=== PATIENT | male | born 1960 | race Caucasian/White ===

== ENCOUNTER 2021-05-01 02:15 | Inpatient (IN) | payer SELFPAY ==
[2021-05-01 02:49] LABS: Absolute Lymphocytes (CBC) 1.9 K/uL (0.7-4.9); Hematocrit 47.5 % (39.6-49.0); Lymphocytes % 21.1 % (15.3-44.8); MPV 8.4 fL (7.6-11.3); Protime INR 0.95; RBC Red Blood Cell Count 5.39 M/uL (4.33-5.43)
[2021-05-01 03:29] LABS: ALT/SGPT 26 U/L (12-78); AST/SGOT 15 U/L (15-37); Albumin 3.6 g/dL (3.4-5.0); Alkaline Phosphatase 88 U/L (45-117); BUN Blood Urea Nitrogen 15 mg/dL (7-18); Bicarbonate 27 mmol/L (21-32); Bilirubin Direct < 0.1 mg/dL (0-0.2); Bilirubin Total 0.2 mg/dL (0.2-1.0); Glucose Level 137 mg/dL (74-106); NT PRO-BNP 123 pg/mL (<125); Potassium 3.9 mmol/L (3.5-5.1); Protein, Total 7.2 g/dL (6.4-8.2); Sodium Level 139 mmol/L (136-145)
--- NOTE | 2021-05-01 04:04 | EDPHYS ---
Physician Documentation [facility] Name: Miah Feliciano Age: 60 yrs Sex: Male : 1960 Arrival Date: 05/01/2021 Time: 02:20 Bed 6 Private MD: ED Physician Virginia Shaw HPI: 05/01 02:40 This 60 yrs old Male presents to ER via Ambulatory with complaints of Chest Pain. sp3 02:40 60-year-old male with history of hypertension on enalapril with no regular medical care sp3 except refills at a "local clinic" presents with a 1 hour history of substernal chest pain radiating to the left arm and is self subsided with time. Patient had 2 adult full strength aspirin by his son prior to arrival. Patient also complains of mild shortness of breath and pain on his left upper extremity with mild numbness of his distal extremity. Patient denies back pain, abdominal pain, nausea, vomiting, diarrhea, syncope, rash, long travel, prolonged immobility, family history of pulmonary embolism or hypercoagulability, or any other review of systems at this time. Patient's pain was described as dull and radiating as described above. Patient has not had a COVID-19 vaccination.. Historical: - Allergies: 02:27 No Known Allergies; tw5 - Home Meds: 02:27 enalapril maleate 20 mg Oral tab 1 tab once daily [Active]; tw5 - PMHx: 02:27 Hypertensive disorder; tw5 - PSHx: 02:27 None; tw5 - Immunization history:: Flu vaccine is not up to date. - Social history:: Smoking status: Patient denies any tobacco usage or history of. ROS: 02:42 Constitutional: Negative for fever, chills, and weight loss, Eyes: Negative for injury, sp3 pain, redness, and discharge, ENT: Negative for injury, pain, and discharge, Neck: Negative for injury, pain, and swelling, Abdomen/GI: Negative for abdominal pain, nausea, vomiting, diarrhea, and constipation, Back: Negative for injury and pain, : Negative for injury, bleeding, discharge, and swelling, MS/Extremity: Negative for injury and deformity, Skin: Negative for injury, rash, and discoloration, Neuro: Negative for headache, weakness, numbness, tingling, and seizure, Psych: Negative for depression, anxiety, suicide ideation, homicidal ideation, and hallucinations, Allergy/Immunology: Negative for hives, rash, and allergies. 02:42 All other systems are negative. Exam: 02:42 Constitutional: This is a well developed, well nourished patient who is awake, alert, sp3 and in no acute distress. Head/Face: Normocephalic, atraumatic. Eyes: Pupils equal round and reactive to light, extra-ocular motions intact. Lids and lashes normal. Conjunctiva and sclera are non-icteric and not injected. Cornea within normal limits. Periorbital areas with no swelling, redness, or edema. ENT: Nares patent. No nasal discharge, no septal abnormalities noted. External auditory canals are clear. Oropharynx with no redness, swelling, or masses, exudates, or evidence of obstruction, uvula midline. Mucous membranes moist. Neck: Trachea midline, no thyromegaly or masses palpated, and no cervical lymphadenopathy. Supple, full range of motion without nuchal rigidity, or vertebral point tenderness. No Meningismus. Chest/axilla: Normal chest wall appearance and motion. Nontender with no deformity. No lesions are appreciated. Cardiovascular: Regular rate and rhythm with a normal S1 and S2. No gallops, murmurs, or rubs. Normal PMI, no JVD. No pulse deficits. Respiratory: Lungs have equal breath sounds bilaterally, clear to auscultation and percussion. No rales, rhonchi or wheezes noted. No increased work of breathing, no retractions or nasal flaring. Abdomen/GI: Soft, non-tender, with normal bowel sounds. No distension or tympany. No guarding or rebound. No evidence of tenderness throughout. Back: No spinal tenderness. No costovertebral tenderness. Full range of motion. Skin: Warm, dry with normal turgor. Normal color with no rashes, no lesions, and no evidence of cellulitis. MS/ Extremity: Pulses equal, no cyanosis. Neurovascular intact. Full, normal range of motion. Neuro: Awake and alert, GCS 15, oriented to person, place, time, and situation. Cranial nerves II-XII grossly intact. Motor strength 5/5 in all extremities. Sensory grossly intact. Cerebellar exam normal. Normal gait. Psych: Awake, alert, with orientation to person, place and time. Behavior, mood, and affect are within normal limits. Vital Signs: 02:23 BP 174 / 102; Pulse 84; Resp 18; Temp 97.7; Pulse Ox 100% on R/A; Weight 90.72 kg; tw5 Height 5 ft. 10 in. (177.80 cm); Pain 5/10; 03:11 BP 156 / 88; Pulse 86; Resp 18; Pulse Ox 98% on R/A; vc1 02:23 Body Mass Index 28.70 (90.72 kg, 177.80 cm) tw5 MDM: 02:28 Patient medically screened. sp3 02:43 Data reviewed: vital signs, nurses notes. ED course: 60-year-old male with hypertension sp3 and chest pain. Will obtain laboratory values, chest x-ray, CT PE protocol, and EKG. EKG demonstrates normal sinus rhythm at 83 bpm with normal intervals, normal QRS, normal axis, normal ST/T-segment's without any evidence of ischemia.. 05/01 02:30 Order name: Basic Metabolic Panel 05/01 02:30 Order name: CBC with Diff; Complete Time: 03:43 05/01 02:30 Order name: LFT's 05/01 02:30 Order name: Magnesium 05/01 02:30 Order name: NT PRO-BNP 05/01 02:30 Order name: PT-INR; Complete Time: 03:43 05/01 02:30 Order name: Troponin HS 05/01 02:30 Order name: XRAY Chest (1 view) 05/01 02:30 Order name: EKG; Complete Time: 02:31 05/01 02:30 Order name: Cardiac monitoring; Complete Time: 02:30 05/01 02:30 Order name: EKG - Nurse/Tech; Complete Time: 02:30 05/01 02:30 Order name: IV Saline Lock; Complete Time: 02:38 tw05/01 02:43 Order name: COVID-19 SARS RT PCR (Document "Date of Onset" if Symptomatic) cs9 05/01 03:46 Order name: CT Chest For PE Angio sp3 05/01 02:30 Order name: Labs collected and sent; Complete Time: 02:38 tw05/01 02:30 Order name: O2 Per Protocol; Complete Time: 02:30 tw5 05/01 02:30 Order name: O2 Sat Monitoring; Complete Time: 02:30 tw5 Administered Medications: No medications were administered Disposition Summary: 05/01/21 04:03 Hospitalization Ordered Hospitalization Status: Observation sp3 Provider: Ervin Wei sp3 Location: Telemetry/MedSurg (observation) sp3 Condition: Stable sp3 Problem: new sp3 Symptoms: are unchanged sp3 Bed/Room Type: Standard sp3 Room Assignment: 207(05/01/21 04:44) cg Diagnosis - Chest pain sp3 Forms: - Medication Reconciliation Form sp3 - SBAR form sp3 Signatures: Dispatcher [employer] Brooke Abrams RN RN cg Virginia Shwa MD MD sp3 Carol Ann Coleman tw5 Corrections: (The following items were deleted from the chart) 04:44 04:03 sp3 cg
--- NOTE | 2021-05-01 04:04 | ER ---
Nurse's Notes [facility] Name: Miah Feliciano Age: 60 yrs Sex: Male : 1960 Arrival Date: 05/01/2021 Time: 02:20 Bed 6 Private MD: Diagnosis: Chest pain Presentation: 05/01 02:23 Chief complaint: Patient states: "I started hurting out of the blue, I was sitting at tw5 the computer. I am not sure how to describe it. It was started as a pain in my shoulder and radiated all the way down to knuckles on my left side. It was also near the center of my chest.". Coronavirus screen: Vaccine status: Patient reports being unvaccinated. Ebola Screen: Patient negative for fever greater than or equal to 101.5 degrees Fahrenheit, and additional compatible Ebola Virus Disease symptoms Patient denies exposure to infectious person. Patient denies travel to an Ebola-affected area in the 21 days before illness onset. Initial Sepsis Screen: Does the patient meet any 2 criteria? No. Patient's initial sepsis screen is negative. Does the patient have a suspected source of infection? No. Patient's initial sepsis screen is negative. Risk Assessment: Do you want to hurt yourself or someone else? Patient reports no desire to harm self or others. Onset of symptoms was May 01, 2021 at 01:40. 02:23 Method Of Arrival: Ambulatory tw5 02:23 Acuity: RENNY 2 tw5 Triage Assessment: 02:27 General: Appears uncomfortable, Behavior is calm, cooperative, appropriate for age, tw5 anxious. Pain: Complains of pain in chest Pain radiates to left arm Pain currently is 5 out of 10 on a pain scale. at worst was 8 out of 10 on a pain scale. Cardiovascular: Rhythm is sinus rhythm. Historical: - Allergies: 02: No Known Allergies; tw5 - Home Meds: : enalapril maleate 20 mg Oral tab 1 tab once daily [Active]; tw5 - PMHx: 02:27 Hypertensive disorder; - PSHx: 02: None; tw5 - Immunization history:: Flu vaccine is not up to date. - Social history:: Smoking status: Patient denies any tobacco usage or history of. Screenin:28 Abuse screen: Denies threats or abuse. Denies injuries from another. Nutritional tw5 screening: No deficits noted. Tuberculosis screening: No symptoms or risk factors identified. Fall Risk No fall in past 12 months (0 pts). Assessment: 02:28 Pain: Pain currently is 5 out of 10 on a pain scale. Pain began 1 hour ago. tw5 Cardiovascular: Heart tones S1 S2 present Capillary refill < 3 seconds is brisk in bilateral fingers. Vital Signs: 02:23 BP 174 / 102; Pulse 84; Resp 18; Temp 97.7; Pulse Ox 100% on R/A; Weight 90.72 kg; tw5 Height 5 ft. 10 in. (177.80 cm); Pain 5/10; 03:11 BP 156 / 88; Pulse 86; Resp 18; Pulse Ox 98% on R/A; vc1 02:23 Body Mass Index 28.70 (90.72 kg, 177.80 cm) tw5 ED Course: 02:20 Patient arrived in ED. kc5 02:22 Carol Ann Coleman is Primary Nurse. tw5 02:22 Arm band placed on right wrist. EKG completed in triage. Results shown to MD. tw5 02:22 Patient has correct armband on for positive identification. Placed in gown. Bed in low tw5 position. Call light in reach. Side rails up X 1. panel monitor on. Pulse ox on. NIBP on. Door closed. Noise minimized. Moved to private room. Warm blanket given. Verbal reassurance given. 02:22 EKG done, by ED staff, reviewed by Carol Ann Coleman. tw5 02:27 Triage completed. tw5 02:28 Virginia Shaw MD is Attending Physician. sp3 02:39 Missed attempt(s): 18 gauge in right antecubital area. 20 gauge in right antecubital ds4 area. Bleeding controlled, band aid applied, catheter tip intact. 02:43 XRAY Chest (1 view) In Process Unspecified. EDMS 03:11 COVID-19 SARS RT PCR (Document "Date of Onset" if Symptomatic) Sent. vc1 04:03 Ervin Wei MD is Hospitalizing Provider. sp3 04:24 CT Chest For PE Angio In Process Unspecified. EDMS 05:09 No provider procedures requiring assistance completed. Patient admitted, IV remains in vc1 place. Patient maintains SpO2 saturation greater than 95% on room air. Administered Medications: No medications were administered Outcome: 04:03 Decision to Hospitalize by Provider. spTiara 04:54 Admitted to Med/surg accompanied by nurse, room 207, on monitor, Report called to tw5 Report Called to Pete 04:54 Condition: stable 05:09 Patient left the ED. vc1 Signatures: Dispatcher [employer] EDMS Thuan Pierce ds4 Virginia Shaw MD MD sp3 Carol Ann Coleman tw5 Adele Eagle5 Alyx Barcenas, RN RN vc1
--- NOTE | 2021-05-01 04:40 | P.HP ---
Certification for Inpatient Patient admitted to: Observation With expected LOS: <2 Midnights Patient will require the following post-hospital care: None Practitioner: I am a practitioner with admitting privileges, knowledge of patient current condition, hospital course, and medical plan of care. Services: Services provided to patient in accordance with Admission requirements found in Title 42 Section 412.3 of the Code of Federal Regulations <Cj Mcdaniel Mary Jo Stoner - Last Filed: 05/01/21 04:38> Patient History Date of Service: 05/01/21 Reason for admission: Chest pain History of Present Illness: 60-year-old male with history of hypertension presents to the emergency department for chest pain. Patient reports that for the past 1 month he has been having chest pain and shortness of breath with exertion, can barely walk from his house to his mailbox without taking breaks. Describes this pain is a basketball being blown up in his chest with pain radiating across chest and down left arm. Patient reports he has these episodes pretty predictably at home with any exertion but this evening's was the worst. Pain is resolved at this time work-up in the emergency department unremarkable EKG without acute changes, initial troponin negative. Chest x-ray unremarkable CTA to rule out PE pending. ED prior wishes to admit to observation for chest pain. Patient has never had any kind of formal cardiac evaluation previously. Has not been to the doctor many years. - Past Medical/Surgical History -: Hypertension -: None Psychosocial/ Personal History: Patient lives at home with family - Family History Mother -: Cancer - Social History Smoking Status: Former smoker Alcohol use: Yes CD- Drugs: No Caffeine use: Yes Place of Residence: Home <Cj Mcdaniel - Last Filed: 05/01/21 04:38> Date of Service: 05/01/21 <Ervin Wei - Last Filed: 05/01/21 17:15> Review of Systems 10-point ROS is otherwise unremarkable Respiratory: Shortness of Breath Cardiovascular: Chest Pain <Cj Mcdaniel - Last Filed: 05/01/21 04:38> Physical Examination - Physical Exam General: Alert, In no apparent distress, Oriented x3 HEENT: Atraumatic, PERRLA, Mucous membr. moist/pink, EOMI, Sclerae nonicteric Neck: Supple, 2+ carotid pulse no bruit, No LAD, Without JVD or thyroid abnormality Respiratory: Clear to auscultation bilaterally, Normal air movement Cardiovascular: Regular rate/rhythm, Normal S1 S2 Gastrointestinal: Normal bowel sounds, No tenderness Musculoskeletal: No tenderness Integumentary: No rashes Neurological: Normal gait, Normal speech, Normal strength at 5/5 x4 extr, Normal tone, Normal affect Lymphatics: No axilla or inguinal lymphadenopathy - Studies Laboratory Data (last 24 hrs) 05/01/21 02:36: PT 10.9, INR 0.95 05/01/21 02:36: WBC 9.10, Hgb 15.8, Hct 47.5, Plt Count 334 05/01/21 02:36: Sodium 139, Potassium 3.9, BUN 15, Creatinine 1.10, Glucose 137 H, Total Bilirubin 0.2, AST 15, ALT 26, Alkaline Phosphatase 88 <Cj Mcdaniel - Last Filed: 05/01/21 04:38> - Studies Laboratory Data (last 24 hrs) 05/01/21 15:11: APTT 31.9 05/01/21 02:36: PT 10.9, INR 0.95 05/01/21 02:36: WBC 9.10, Hgb 15.8, Hct 47.5, Plt Count 334 05/01/21 02:36: Sodium 139, Potassium 3.9, BUN 15, Creatinine 1.10, Glucose 137 H, Magnesium 2.1, Total Bilirubin 0.2, AST 15, ALT 26, Alkaline Phosphatase 88 <Ervin Wei - Last Filed: 05/01/21 17:15> Assessment and Plan - Plan Assessment: Chest pain rule out ACS Hypertension Plan: Chest pain rule out ACS: Trend troponin, monitor on telemetry, cardiology consult in place. Aspirin, statin, beta-dai therapy. As needed morphine/nitro. Patient further input from cardiology. Hypertension: Continue metoprolol 25 mg p.o. twice daily with hold parameters. DVT PPX: Lovenox Code status: Full Discharge Plan: Home Plan to discharge in: 24 Hours - Advance Directives Does patient have a Living Will: No Does patient have a Durable POA for Healthcare: No - Code Status/Comfort Care Code Status Assessed: Yes (Full code) Critical Care: No Time Spent Managing Pts Care (In Minutes): 55 <Cj Mcdaniel - Last Filed: 05/01/21 04:38> - Plan Patient seen and examined on rounds. Denies any further chest pain since shortly after admission. Initial troponin negative, second troponin pending. Cardiology consulted Patient symptoms concerning for ACS/unstable angina Cardiology plans to take patient for cardiac cath today <Ervin Wei - Last Filed: 05/01/21 17:15>
[2021-05-01] MEDS ORDERED: ONDANSETRON 4 MG/2 ML VIAL IV PRN (05:06)
[2021-05-01] MEDS ORDERED: MORPHINE 2 MG/ML SYR IV PRN (05:06)
[2021-05-01] MEDS ORDERED: NITROGLYCERIN 0.4 MG/TAB SL PRN (05:06)
[2021-05-01 05:37] VITALS: BMI 30.9
[2021-05-01 05:47] LABS: Urine Appearance CLEAR (Clear); Urine Bilirubin NEGATIVE (Negative); Urine Blood NEGATIVE (Negative); Urine Color YELLOW (Yellow); Urine Glucose NEGATIVE (Negative); Urine Protein NEGATIVE (Negative); Urine Specific Gravity >=1.030 (1.005-1.030); Urine Urobilinogen 0.2 mg/dL (0.2-1.0)
[2021-05-01 06:00] LABS: Urine Microscopic Reflex NO UMIC
[2021-05-01] MEDS: METOPROLOL TAR 25 MG TAB PO SCH ×2 (06:09→17:25)
--- NOTE | 2021-05-01 07:49 | RAD REPORT ---
EXAM DESCRIPTION: RAD - Chest Single View - 05/01/2021 2:43 am CLINICAL HISTORY: CHEST PAIN COMPARISON: Chest For Pe Angio dated 05/01/2021 FINDINGS: Lines: None. Lungs: No evidence of edema or pneumonia. Pleural: No significant pleural effusions or pneumothorax. Cardiac: The heart size is within normal limits. Bones: No acute fractures. Other: IMPRESSION: No acute cardiopulmonary disease.
[2021-05-01] MEDS ORDERED: ENOXAPARIN 40 MG/0.4 ML SQ SCH (09:00)
[2021-05-01] MEDS: ASPIRIN EC 81 MG TAB PO SCH (09:00)
[2021-05-01 10:01] LABS: Thyroid Stimulating Hormone 2.32 uIU/mL (0.360-3.740)
[2021-05-01 10:02] LABS: Troponin High Sensitivity 1317.3 pg/mL (<58.9)
[2021-05-01] MEDS ORDERED: FENTANYL CITR 100 MCG/2 ML ONE (10:26)
[2021-05-01] MEDS ORDERED: LIDOCAINE 1% 20 ML MDV ONE (10:26)
[2021-05-01] MEDS ORDERED: HEPA 1000U/500MLS 1,000 UNIT/500 ML BAG IV ONE (10:26)
[2021-05-01] MEDS ORDERED: MIDAZOLAM HCL 2 MG/2 ML INJ ONE ×2 (10:26→11:08)
[2021-05-01] MEDS ORDERED: NA CHLORIDE 0.9% 500 ML ONE (10:27)
[2021-05-01] MEDS ORDERED: ATROPINE SULF 1 MG/10 ML SYR IV ONE (10:27)
[2021-05-01] MEDS ORDERED: NA CHLORIDE 0.9% 0 ML ONE (10:27)
--- NOTE | 2021-05-01 12:11 | RAD REPORT ---
EXAM DESCRIPTION: CT - Chest For Pe Angio - 05/01/2021 6:29 am CLINICAL HISTORY: 60 years Male CHEST PAIN. TECHNIQUE: Following the administration of intravenous contrast, multiple high-resolution axial imag es of the chest were performed followed by sagittal and coronal reconstructed images. Coronal and sag ittal MIP images were also performed. The CT study is performed according to ALARA (as low as reasona belinda achievable) or ALARA/IMAGE GENTLY, with automatic adjustment of mA and/or kV according to patient size. Performed on: 05/01/2021 at 4:11 AM COMPARISON: no prior studies were available for comparison FINDINGS: There is adequate contrast opacification of pulmonary arteries. No definite intra-arteri al filling defects are identified to suggest acute or chronic pulmonary embolism. The thoracic aorta is normal in caliber and contour without evidence of aneurysm or dissection. The lungs are well-expanded. There is mild bibasilar fibrosis and/or atelectasis. There are no pleura l effusions. There is no pneumothorax. The central airways are patent. The heart is normal in size. There is no pericardial effusion. There is no reflux of contrast into th e hepatic veins to suggest right heart strain.The RV/LV ratio is within normal limits. There are mild coronary artery calcifications. There is no evidence of hilar, mediastinal or axillary lymphadenopathy. No acute osseous abnormality is identified. There is a prominent focal area of sclerosis within the T 8 vertebral body measuring approximately 1.9 x 1.6 x 1.1 cm. This may represent a benign bone island. There is also a small focal area of sclerosis within the left lamina of T5. Sclerotic metastases are not entirely excluded. The visualized upper abdominal structures are unremarkable. IMPRESSION: 1. No evidence of acute or chronic pulmonary embolism, aortic aneurysm or dissection. 2. Mild bibasilar fibrosis and/or atelectasis. There is no evidence of acute intrathoracic disease. 3. There is a prominent focal area of sclerosis within the T8 vertebral body measuring approximatel y 1.9 x 1.6 x 1.1 cm. This may represent a benign bone island. There is also a small focal area of sc lerosis within the left lamina of T5. Sclerotic metastases are not entirely excluded. Electronically signed by: Allyson Mart DO 05/01/2021 5:36 AM MANUFACTURING DIRECTOR Due to temporary technical issues with the PACS/Fluency reporting system, reports are being signed by the in house radiologists without review as a courtesy to insure prompt reporting. The interpreting radiologist is fully responsible for the content of the report.
--- NOTE | 2021-05-01 14:40 | EKG ---
Test Date: 2021-05-01 Test Time: 02:18:57 Exhaust Worker: MEASUREMENT RESULTS: Intervals: Rate: 83 WV: 122 QRSD: 86 QT: 378 QTc: 444 [place]: P: 35 WV: 122 QRS: 23 T: 65 INTERPRETIVE STATEMENTS: Normal sinus rhythm Nonspecific ST abnormality Abnormal ECG No previous ECG available for comparison Electronically Signed On 05-01-21 14:39:30 PROGRAM MANAGER TRANSPORTATION by Jovi Ibrahim
--- NOTE | 2021-05-01 14:43 | ECHO ---
HEIGHT: 5 ft 10 in WEIGHT: 215 lb 3.2 oz DATE OF STUDY: 05/01/[address]: Jovi Ibrahim MD 2-DIMENSIONAL: YES M.MODE: YES DOPPLER: YES COLOR FLOW: YES TDS: NO PORTABLE: NO DEFINITY: NO BUBBLE STUDY: NO DIAGNOSIS: HEART FUNCTION EVALUATION CARDIAC HISTORY: CATHERIZATION:YES SURGERY: NO PROSTHETIC VALVE: NO PACEMAKER: NO MEASUREMENTS (cm) DIASTOLIC (NORMALS) SYSTOLIC (NORMALS) IVSd 1.1 (0.6-1.2) LA Diam 3.4 (1.9-4.0) LVEF 77% LVIDd 4.1 (3.5-5.7) LVIDs 2.3 (2.0-3.5) %FS 45% LVPWd 1.2 (0.6-1.2) Ao Diam 2.7 (2.0-3.7) 2 DIMENSIONAL ASSESSMENT: RIGHT ATRIUM: NORMAL LEFT ATRIUM: NORMAL RIGHT VENTRICLE: NORMAL LEFT VENTRICLE: NORMAL TRICUSPID VALVE: NORMAL MITRAL VALVE: NORMAL PULMONIC VALVE: NORMAL AORTIC VALVE: NORMAL PERICARDIAL EFFUSION: NONE AORTIC ROOT: NORMAL LEFT VENTRICULAR WALL MOTION: NORMAL DOPPLER/COLOR FLOW: NORMAL COMMENTS: NORMAL 2D ECHOCARDIOGRAM WITH DOPPLER. NO WALL MOTION ABNORMALITY. NO EFFUSION. TECHNOLOGIST: Sparkle FARR
[2021-05-01] MEDS ORDERED: HEPARIN/D5W 25,000 UNIT/500 ML BAG IV PRN (15:00)
[2021-05-01] MEDS ORDERED: HEPARIN 10,000 UNIT/10 ML VIAL IV PRN (15:00)
--- NOTE | 2021-05-01 15:13 | OP ---
Date of Procedure: 05/01/2021 Surgeon: Jovi Ibrahim MD District Ranger: Lorna Mijares. Indication: Admitted to Dr. Wei on 05/01/2021 with unstable angina. The patient brought to the [facility] lab today as an inpatient, prepped and draped in a routine sterile fashion. Given Versed and fent anyl for sedation, underwent a left heart catheterization with selective coronary arteriogram. Procedure In Detail: A 6-[place] sheath introduced in the right common femoral artery successfully us ing the Seldinger technique and 10 cc of Xylocaine. Connor catheter left and right were used to can nulate the left main and right main respectively. The RCA was completely occluded. It was a small v essel nondominant. The left system showed a distal left main ostial LAD, mid LAD and severe 99% sten osis with MILAGRO 2 flow. The circumflex and ramus were patent. There were no complications. Blood Loss: 5 mL. The patient tolerated the procedure well. Postoperative Diagnosis: Severe coronary artery disease. Plan: For CABG, at least HIGH to the LAD, maybe a vein graft to the diagonal and the ramus. The pat ient will be transferred to [place] today. I will heparinize him meanwhile. Anesthesia: Total conscious sedation 45 minutes. NB/MODL Voice ID: [id number] Report ID: [id number]
[2021-05-01 15:41] LABS: Magnesium 2.1
--- NOTE | 2021-05-01 17:17 | P.PN ---
Date of Service: 05/01/21 Patient underwent cardiac catheterization, found to have significant multivessel disease. Cardiology recommends transfer to tertiary care center for CABG. Called to patient's bedside, he had gotten up out of bed, walk to the bathroom, and then started bleeding from the cardiac catheterization site. Patient was put back in bed, noted to be slightly hypertensive, pressure was applied with resolution of bleeding. No significant hematoma palpated. Continue bedrest, pressure dressing applied. Updated cardiology. Delay heparin drip initiation until 8 PM this evening
[2021-05-01 18:07] VITALS: O2SAT 96
[2021-05-01] MEDS ORDERED: ATORVASTATIN 40 MG TAB PO SCH (21:00)
[2021-05-02] MEDS ORDERED: ACETAMINOPHEN 500 MG TAB PO ONE (00:44)
[2021-05-02 05:28] LABS: Absolute Lymphocytes (CBC) 1.8 K/uL (0.7-4.9); Hematocrit 46.3 % (39.6-49.0); Lymphocytes % 21.4 % (15.3-44.8); MPV 8.3 fL (7.6-11.3); RBC Red Blood Cell Count 5.27 M/uL (4.33-5.43)
--- NOTE | 2021-05-02 06:23 | P.PN ---
Date of Service: 05/02/21 Subjective: transfer initiated to Pending sale to [facility] yesterday by cardiology Still pending bed/final acceptance Episode of bleeding yesterday afternoon after he stood up, improved with pressure and extended bedrest ROS: 10 point ROS as noted above, otherwise negative Physical exam GEN: Alert, oriented, NAD HEENT: Normal conjunctiva, sclera anicteric CV: Regular rate and rhythm, no edema Pulm: Nonlabored respiration on room air ABD: Soft, nontender, nondistended MSK: No joint tenderness Integumentary: No rashes Neuro: Normal speech, normal affect Problem List Time Spent Managing Pts Care (In Minutes): 35
[2021-05-02 06:33] LABS: ALT/SGPT 22 U/L (12-78); Albumin 3.1 g/dL (3.4-5.0); Alkaline Phosphatase 66 U/L (45-117); BUN Blood Urea Nitrogen 10 mg/dL (7-18); Bicarbonate 24 mmol/L (21-32); Bilirubin Total 0.5 mg/dL (0.2-1.0); Glucose Level 100 mg/dL (74-106); Protein, Total 6.5 g/dL (6.4-8.2); Sodium Level 137 mmol/L (136-145)
[2021-05-02 06:39] LABS: AST/SGOT 21 U/L (15-37); Potassium 4.1 mmol/L (3.5-5.1)
[2021-05-02] MEDS: METOPROLOL TAR 25 MG TAB PO SCH (06:53)
[2021-05-02 09:43] VITALS: BP 155/87; TEMP 97.4
[2021-05-02] MEDS: ASPIRIN EC 81 MG TAB PO SCH (10:03)
--- NOTE | 2021-05-02 18:19 | P.DS ---
Admission Date: 05/01/21 Discharge Date: 05/02/21 Disposition: TRANSFER TO [facility] Reason for Admission: Chest pain Procedures: Cardiac Cath (05/01): RCA completely occluded. distal left main ostial, mid LAD and severe 99% stenosis with MILAGRO 2 flow. Circumflex and ramus were patent. Problem List NSTEMI, multivessel CAD Hypertension Brief History of Present Illness: 60-year-old male with history of hypertension presents to the emergency department for chest pain. Patient reports that for the past 1 month he has been having chest pain and shortness of breath with exertion, can barely walk from his house to his mailbox without taking breaks. Describes this pain is a basketball being blown up in his chest with pain radiating across chest and down left arm. Patient reports he has these episodes pretty predictably at home with any exertion but this evening's was the worst. Pain is resolved at this time work-up in the emergency department unremarkable EKG without acute changes, initial troponin negative. Chest x-ray unremarkable CTA to rule out PE pending. ED prior wishes to admit to observation for chest pain. Patient has never had any kind of formal cardiac evaluation previously. Has not been to the doctor many years. Hospital Course: Troponins trended upwards. Cardiology took patient for cardiac cath on 05/01, which revealed severe multivessel disease neccessitating CABG. Post-operative course was complicated by brief bleeding from cath site after patient stood >6hrs after procedure. This resolved with pressure and subsequent pressure dressing. He was placed on a heparin drip. No further bleeding occurred. Patient was transferred to [facility] for CABG. Vitals WNL and stable. Vital Signs/Physical Exam: Physical exam GEN: Alert, oriented, NAD HEENT: Normal conjunctiva, sclera anicteric CV: Regular rate and rhythm, no edema Pulm: Nonlabored respiration on room air ABD: Soft, nontender, nondistended Integumentary: R groin: pressure dressing intact Neuro: Normal speech, normal affect Temp Pulse Resp BP Pulse Ox 97.4 F 74 20 155/87 H 96 05/02/21 08:00 05/02/21 08:00 05/02/21 08:00 05/02/21 08:00 05/02/21 08:00 Laboratory Data at Discharge: WBC 8.40 K/uL (4.3-10.9) 05/02/21 05:15 Hgb 15.4 g/dL (13.6-17.9) 05/02/21 05:15 Hct 46.3 % (39.6-49.0) 05/02/21 05:15 Plt Count 286 K/uL (152-406) 05/02/21 05:15 PT 10.9 SECONDS (9.5-12.5) 05/01/21 02:36 INR 0.95 05/01/21 02:36 APTT 52.6 SECONDS (24.3-36.9) H 05/02/21 08:40 Sodium 137 mmol/L (136-145) 05/02/21 05:15 Potassium 4.1 mmol/L (3.5-5.1) 05/02/21 05:15 BUN 10 mg/dL (7-18) 05/02/21 05:15 Creatinine 0.84 mg/dL (0.55-1.3) 05/02/21 05:15 Glucose 100 mg/dL (74-106) 05/02/21 05:15 Magnesium 2.0 05/02/21 05:15 Total Bilirubin 0.5 mg/dL (0.2-1.0) 05/02/21 05:15 AST 21 U/L (15-37) 05/02/21 05:15 ALT 22 U/L (12-78) 05/02/21 05:15 Alkaline Phosphatase 66 U/L (45-117) 05/02/21 05:15 Triglycerides 166 mg/dL (<150) H 05/02/21 08:40 Cholesterol 262 mg/dL (<200) H 05/02/21 08:40 HDL Cholesterol 57 mg/dL (40-60) 05/02/21 08:40 Cholesterol/HDL Ratio 4.60 05/02/21 08:40 Home Medications: Enalapril Maleate 20 mg PO DAILY 05/01/21 Followup: NONE,NONE [Primary Care Provider] - Time spent managing pt's care (in minutes): 45
--- NOTE | 2021-05-02 20:19 | CON ---
Date of Consultation: 05/01/2021 The patient was admitted and seen on 05/01/2021. Admitting physician Dr. Wei. Reason For Consultation: Unstable angina. History Of Present Illness: Mr. Feliciano is a 60-year-old male, does not really have much in way of [facility] medical history except for hypertension for which he takes enalapril, but has not been to a physic catherine for quite some time. Comes in with classic unstable angina with chest pain radiating to both ext remities and to jaw with exertion and shortness of breath and diaphoresis. Denies any nausea, vomiti ng, PND, orthopnea, pedal edema, palpitation, or syncope. Past Medical History: As stated above. Allergies: NONE. Review of Systems: Negative. Social History: Negative. Family History: Noncontributory. Physical Examination: Vital Signs: Stable, he was afebrile. HEENT: Negative. Neck: Supple. No bruit. Chest: Clear to auscultation and percussion. Cardiac: Regular rhythm and rate. No murmurs, gallops, or rubs. Abdomen: Benign. Extremities: No clubbing, cyanosis, or edema. Diagnostic Data: Include a troponin of 2015 negative, his lipid profile was abnormal. Impression And Plan: 1.Non-STEMI. 2.Dyslipidemia. 3.Hypertension. We will take him to the clinical laboratory service teacher immediately to define his coronary anatomy with heart catheterizatio n. The patient understands the risk and the benefits of the procedure and he agrees to proceed. He is presently on heparin, aspirin, metoprolol. We should add statin to his regimen. We will see what his catheterization shows before we make any further decision. GEGE/MANUEL Voice ID: [id number] Report ID: [id number]
== END 2021-05-02 12:33 | disposition short-term general hospital (02) | DRG 281 ==
LOC: ER 02:15 → ERHOLD 04:34 → 2ND 04:46 → OBSVTOIN 15:36
PROVIDERS: ADMIT Hospitalist; ATTEND Hospitalist
PROC: 4A023N7 Measurement of Cardiac Sampling and Pressure, Left Heart, Percutaneous Approach (ICD-10-PCS; principal; 2021-05-01)
PROC: B2111ZZ Fluoroscopy of Multiple Coronary Arteries using Low Osmolar Contrast (ICD-10-PCS; 2021-05-01)
DX: I21.4 Non-ST elevation (NSTEMI) myocardial infarction (principal); I97.610 Postprocedural hemorrhage of a circulatory system organ or structure following a cardiac catheterization; I25.110 Atherosclerotic heart disease of native coronary artery with unstable angina pectoris; E78.5 Hyperlipidemia, unspecified; I10 Essential (primary) hypertension; Y83.8 Other surgical procedures as the cause of abnormal reaction of the patient, or of later complication, without mention of misadventure at the time of the procedure; Z87.891 Personal history of nicotine dependence; Z20.822 Contact with and (suspected) exposure to COVID-19
CPT/HCPCS: 36415; 71045; 71275; 80048; 80053; 80061; 80076; 81003; 83735; 83880; 84439; 84443; 84484; 85025; 85610; 85730; 93005; 93306; 93454; 99285; C1893; G0378; J0583; J1644; J1650; J2250; J2270; J3010; J7040; Q9967; U0003